=== PATIENT | female | born 1995 | race Caucasian/White ===

== ENCOUNTER → 2017-10-05 | Outpatient (REF) | payer OTHER ==
[2017-10-06 01:54] LABS: CHLAMYDIA DNA AMPLIFICATION NEGATIVE (NEGATIVE); GC DNA AMPLIFICATION NEGATIVE (NEGATIVE)
== END ==
LOC: M LAB REF 17:36
DX: Z01.419 Encounter for gynecological examination (general) (routine) without abnormal findings (principal)

== ENCOUNTER → 2017-10-22 | Outpatient (REF) | payer OTHER | LOC: M LAB REF 19:55 | DX: D48.5 Neoplasm of uncertain behavior of skin (principal) ==

== ENCOUNTER → 2018-07-14 | Outpatient (REF) | payer OTHER | LOC: M LAB REF 16:56 | DX: J02.9 Acute pharyngitis, unspecified (principal) ==

== ENCOUNTER → 2018-07-14 | Outpatient (CLI) | payer OTHER | LOC: M SMT 15:07 | DX: J22 Unspecified acute lower respiratory infection (principal) | CPT/HCPCS: 87070 ==

== ENCOUNTER → 2018-09-22 | Outpatient (CLI) | payer OTHER ==
[2018-09-22 17:51] LABS: BASO % 0.2 % (0.0-1.0); EOS # 0.1 10^3/uL (0.0-0.50); EOS % 1.1 % (0.0-3.0); HEMATOCRIT 41.4 % (36.0-47.0); HEMOGLOBIN 13.9 g/dl (12.0-15.5); LYMPH # 1.8 10^3/uL (1.5-6.5); LYMPH % 21.7 % (24.0-44.0); MEAN CORPUSCULAR HEMOGLOBIN 29.6 pg (27.0-33.0); MEAN CORPUSCULAR HGB CONC 33.6 g/dl (32.0-36.5); MEAN CORPUSCULAR VOLUME 88.3 fl (80.0-96.0); MONO # 0.5 10^3/uL (0.0-0.8); MONO % 6.4 % (0.0-5.0); NEUTROPHILS # 5.8 10^3/uL (1.8-7.7); NEUTROPHILS % 70.2 % (36.0-66.0); PLATELET COUNT, AUTOMATED 307 10^3/uL (150-450); RED BLOOD COUNT 4.69 10^6/uL (4.00-5.40); WHITE BLOOD COUNT 8.2 10^3/uL (4.0-10.0)
[2018-09-22 18:56] LABS: CHLAMYDIA DNA AMPLIFICATION NEGATIVE (NEGATIVE); GC DNA AMPLIFICATION NEGATIVE (NEGATIVE)
[2018-09-23 11:12] LABS: HEPATITIS C VIRUS ABY INDEX 0.1 INDEX (<0.8); HIV 1&2 SCREEN CENTAUR NEGATIVE (NEGATIVE); RUBELLA IgG QUALITATIVE EQUIVOCAL (IMMUNE)
== END ==
LOC: M SMT 11:48
PROVIDERS: ATTEND Obstetrics & Gynecology
DX: Z34.00 Encounter for supervision of normal first pregnancy, unspecified trimester (principal); Z3A.08 8 weeks gestation of pregnancy

== ENCOUNTER → 2018-11-30 | Outpatient (CLI) | payer OTHER ==
--- NOTE | 2018-12-01 02:59 | REP ---
Clinical: Anatomical evaluation. Comparison: None . Findings: Examination demonstrates a single live intrauterine in breech presentation. motion is identified by technologist. Placenta is noted anterior and grade grade 1 without evidence for placenta previa or abruption. Amniotic fluid volume is normal. Cervix measures 2.7 cm in length and appears closed. No evidence for nuchal cord. Gestational age by LMP 18 weeks 3 days with GAGE 04/30/2019 . Gestational age by current measurements 04-wiem-0-day with GAGE AC 04/27/2019 . FHR equals 147 beats per minute. BPD 4.3 cm 19 weeks 0 days HC 16.3 cm 19 weeks 0 day AC 14.2 cm 19 weeks 4 days FL 2.7 cm 18 weeks 2 day HL 2.7 cm 18 weeks 4 day HC/AC ratio 1.15 Estimated weight 266 grams ( 68th percentile). Anatomical assessment demonstrates normal structures including cranium, choroid plexus, cavum, cerebellum/posterior fossa, facial features, lungs, four-chamber heart/ventricular outflow tracts, diaphragm, stomach, cord insertion/three-vessel cord, kidneys/bladder, and extremities. Impression: 1. Single live intrauterine in breech presentation demonstrating appropriate interval growth. 2. Limited evaluation of the spine. Remainder of the anatomical assessment is complete and normal. Electronically Signed by Lopez Askew MD 12/01/2018 02:51 A
== END ==
LOC: M RAD 17:18
PROVIDERS: ATTEND Advanced Practice Midwife
DX: O32.1XX0 Maternal care for breech presentation, not applicable or unspecified (principal); Z36.89 Encounter for other specified antenatal screening; Z3A.18 18 weeks gestation of pregnancy

== ENCOUNTER → 2018-12-22 | Outpatient (CLI) | payer OTHER ==
--- NOTE | 2018-12-22 15:07 | REP ---
OBSTETRIC SONOGRAPHY: HISTORY: Supervision of followup anatomy. FINDINGS: Scanning through the gravid uterus demonstrates a viable single intrauterine gestation in a cephalic lie. motion is observed and heart rate is recorder 144 beats per minute. An anterior grade 1 placenta is seen without evidence of previa. Amniotic fluid is subjectively normal. Closed cervical length is measured at 3.6 cm viewed transabdominally. There has been appropriate interval growth. No anomaly is seen. The following anatomic structures are identified today and felt to be sonographically unremarkable: cranium, choroid plexus, cavum, cerebellum posterior fossa, face and profile, lungs, four-chamber heart with left and right ventricular outflow tract views, diaphragm, left-sided stomach, abdominal wall cord insertion, three-vessel umbilical cord, kidneys and bladder, spine, upper and lower extremities. Biometry Chart: BPD 5.4 cm = 22 weeks 2 days HC 19.3 cm = 21 weeks 4 days AC 16.4 cm = 21 weeks 3 days FL 3.9 cm = 22 weeks 2 days HL 3.5 cm = 22 weeks 0 days CD 2.3 cm = 21 weeks 2 days HC/AC ratio normal 1.18 Cephalic index normal 0.78. Estimated weight 454 grams, 1 pound 0 ounces, 55th percentile for 21 weeks 4 days. IMPRESSION: Viable single intrauterine gestation at 21 weeks 5 days by today's composite sonographic criteria. Expected gestational age estimate based on prior sonography is 21 weeks 4 days. GAGE by prior sonography April 30, 2019. anatomic survey is felt to be complete. Electronically Signed by Gurdeep Rivas MD 12/22/2018 03:28 P
== END ==
LOC: M SMT 08:30
PROVIDERS: ATTEND Obstetrics & Gynecology
DX: Z34.82 Encounter for supervision of other normal pregnancy, second trimester (principal); Z3A.21 21 weeks gestation of pregnancy

== ENCOUNTER → 2019-01-25 | Outpatient (CLI) | payer OTHER ==
[2019-01-25 14:01] LABS: HEMATOCRIT 33.9 % (36.0-47.0); HEMOGLOBIN 11.3 g/dl (12.0-15.5); MEAN CORPUSCULAR HEMOGLOBIN 30.3 pg (27.0-33.0); MEAN CORPUSCULAR HGB CONC 33.3 g/dl (32.0-36.5); MEAN CORPUSCULAR VOLUME 90.9 fl (80.0-96.0); PLATELET COUNT, AUTOMATED 222 10^3/uL (150-450); RED BLOOD COUNT 3.73 10^6/uL (4.00-5.40); WHITE BLOOD COUNT 8.1 10^3/uL (4.0-10.0)
== END ==
LOC: M SMT 09:09
PROVIDERS: ATTEND Obstetrics & Gynecology
DX: Z34.02 Encounter for supervision of normal first pregnancy, second trimester (principal); Z3A.00 Weeks of gestation of pregnancy not specified

== ENCOUNTER → 2019-04-04 | Outpatient (REF) | payer OTHER | LOC: M LAB REF 13:06 | PROVIDERS: ATTEND Specialist | DX: Z34.03 Encounter for supervision of normal first pregnancy, third trimester (principal) ==

== ENCOUNTER → 2019-04-25 | Outpatient (CLI) | payer OTHER ==
[~2019-04-25] MED LIST: PRENTAB9 PO; RANI1TAB38 PO
[2019-04-25 17:09] LABS: HEMATOCRIT 36.2 % (36.0-47.0); HEMOGLOBIN 12.2 g/dl (12.0-15.5); MEAN CORPUSCULAR HEMOGLOBIN 29.8 pg (27.0-33.0); MEAN CORPUSCULAR HGB CONC 33.7 g/dl (32.0-36.5); MEAN CORPUSCULAR VOLUME 88.3 fl (80.0-96.0); PLATELET COUNT, AUTOMATED 223 10^3/uL (150-450); WHITE BLOOD COUNT 10.1 10^3/uL (4.0-10.0)
[2019-04-25 17:30] LABS: CREATININE,RANDOM URINE 39.9 MG/DL; TOTAL PROTEIN,RANDOM URINE 18.9 MG/DL (0.0-12.0)
[2019-04-25 17:31] LABS: ALT/SGPT 15 U/L (12-78); BILIRUBIN,TOTAL 0.3 MG/DL (0.2-1.0); CREATININE FOR GFR 0.65 MG/DL (0.55-1.30); GLOMERULAR FILTRATION RATE > 60.0 (>60); LDH LACTATE DEHYDROGENASE 135 U/L (84-246); URIC ACID 3.3 MG/DL (2.6-6.0)
== END ==
LOC: M LAB 16:36
PROVIDERS: ATTEND Advanced Practice Midwife
DX: O16.3 Unspecified maternal hypertension, third trimester (principal)

== ENCOUNTER 2019-04-26 11:35 | Inpatient (IN) | payer OTHER ==
[~2019-04-26] VITALS: Ht 160 cm; Wt 81.1 kg
[2019-04-26] MEDS ORDERED: RANI1TAB38 PO (11:59)
[2019-04-26] MEDS ORDERED: PRENTAB9 PO (11:59)
[2019-04-26 12:10] VITALS: BP 139/89
[2019-04-26 12:52] LABS: HEMATOCRIT 35.6 % (36.0-47.0); HEMOGLOBIN 12.2 g/dl (12.0-15.5); MEAN CORPUSCULAR HEMOGLOBIN 30.6 pg (27.0-33.0); MEAN CORPUSCULAR HGB CONC 34.3 g/dl (32.0-36.5); MEAN CORPUSCULAR VOLUME 89.2 fl (80.0-96.0); PLATELET COUNT, AUTOMATED 205 10^3/uL (150-450); RED BLOOD COUNT 3.99 10^6/uL (4.00-5.40); WHITE BLOOD COUNT 10.7 10^3/uL (4.0-10.0)
[2019-04-26 13:00] VITALS: BP 120/67
[2019-04-26] MEDS ORDERED: miSOPROStol 50 MCG 1/2 TAB (S0191) PO ONE (13:00)
[2019-04-26] MEDS ORDERED: SLF 3 ML SYR IV PRN (13:30)
--- NOTE | 2019-04-26 13:38 | HPE ---
DATE OF ADMISSION: 04/26/2019 Chiquita is a 23-year-old, 1, para 0 at 39 and 3/7 weeks with an estimated date of confinement (EDC) of 04/30/2019 based on last menstrual period and confirmed by first trimester ultrasound. She presents to labor and delivery today following followup appointment with elevated blood pressure in the office yesterday. Blood pressure today was again found to be elevated. She does deny visual disturbances, headaches, epigastric pain and right upper quadrant discomfort. She denies regular painful contractions, vaginal bleeding and leakage of fluid. The fetus has been active. care was initiated at [facility] in the first trimester. course complicated by Rubella equivocal with a plan to immunize patient and today's diagnosis of preeclampsia. OBSTETRIC HISTORY: Primigravida. OBSTETRIC LABORATORIES: O positive, antibody screen negative, Rubella equivocal, VDRL nonreactive, urine culture with no growth, hepatitis B surface antigen negative, HIV negative, hepatitis C antibody nonreactive, Gonorrhea and chlamydia negative. She did decline genetic serum screening laboratories. Gestational diabetic screening normal at 92. Group B streptococcus (GBS) is negative. Preeclamptic profile from 04/25/2019: CBC with hemoglobin of 12.2, hematocrit 36.2, platelets 223, creatinine 0.65, uric acid 3.3, AST 12, ALT 5, LDH 135. Spot urine for protein was 0.247. PAST MEDICAL HISTORY: 1. Childhood varicella. SURGERIES: 1. [place] tooth extraction. FAMILY HISTORY: Hypertension, liver disease. SOCIAL HISTORY: The patient is . Her is at bedside and supportive. She is a nonsmoker. She denies alcohol and drug use. No history of any sexually transmitted infections. She denies a history of abuse -- physical, sexual and emotional. ALLERGIES: KEFLEX. CURRENT MEDICATIONS: - Zantac 150 mg twice a day - Zofran 4 mg as needed - vitamin OBJECTIVE: Temperature 98.4, pulse 88, respirations 18, blood pressure 139/89. heart rate upon arrival 140 with moderate variability, positive accelerations, no decelerations, contractions about every 7 minutes and mild. Abdomen: Gravid, cephalic presentation, estimated weight 7.5 pounds. Sterile vaginal examination: 2 cm dilated, 50% effaced, -2 station, very posterior, soft and no show with the examination. ASSESSMENT: 1. Intrauterine at 39 and 3/7 weeks. heart rate category 1. 2. Preeclampsia. PLAN: Admit patient to labor and delivery for induction of labor. Routine labs. Out of bed as desired. Regular diet at this time. We will start misoprostol 50 mcg by mouth times one dose for cervical ripening. I did review the risks, benefits and alternatives with the patient. Her and her 's questions have been answered. She has been verbally consented for emergency surgery and blood products if necessary. I do anticipate cervical ripening.
[2019-04-26 13:55] VITALS: BP 128/73
[2019-04-26 14:01] VITALS: BP 120/69
[2019-04-26] MEDS ORDERED: miSOPROStol 50 MCG 1/2 TAB (S0191) PV ONE (17:00)
[2019-04-26] MEDS: SLF 3 ML SYR IV SCH ×2 (17:19→22:00)
[2019-04-26 18:22] VITALS: BP 137/80
[2019-04-26] MEDS ORDERED: OXYTOCIN DRIP 30 UNITS in APPROPRIATE DILUENT 1 EA IV SCH (19:30)
[2019-04-26] MEDS ORDERED: OXYTOCIN 30 UNITS IN 0.9% NaCl 500ML IV BAG (J2590) As Ordered ONE (22:06)
[2019-04-26] MEDS ORDERED: CALCIUM CARBONATE 500 MG CHEW U/D As Ordered ONE (23:32)
[2019-04-27] VITALS (89 sets, daily range): BP systolic 94–175; BP diastolic 53–92
[2019-04-27] MEDS ORDERED: FENTANYL 2MCG/ML ROPIVACAINE 0.2% IN 0.9% NACL 100ML IVBAG As Ordered ONE (00:13)
[2019-04-27 00:39] LABS: HEMATOCRIT 36.1 % (36.0-47.0); HEMOGLOBIN 12.5 g/dl (12.0-15.5); MEAN CORPUSCULAR HEMOGLOBIN 30.7 pg (27.0-33.0); MEAN CORPUSCULAR HGB CONC 34.6 g/dl (32.0-36.5); MEAN CORPUSCULAR VOLUME 88.7 fl (80.0-96.0); PLATELET COUNT, AUTOMATED 224 10^3/uL (150-450); RED BLOOD COUNT 4.07 10^6/uL (4.00-5.40); WHITE BLOOD COUNT 13.1 10^3/uL (4.0-10.0)
[2019-04-27] MEDS: LR 1,000 ML IV SCH ×2 (01:29→10:49)
[2019-04-27] MEDS ORDERED: EPIDURAL COMMENT XX SCH (02:00)
[2019-04-27] MEDS ORDERED: REFRIGERATOR IV KEYS XX PRN (02:00)
[2019-04-27] MEDS ORDERED: diphenhydrAMINE INJ 50MG/ML VIAL (J1200) IV PRN (02:00)
[2019-04-27] MEDS ORDERED: NALOXONE INJ 0.4 MG/1 ML VIAL (J2310) IV PRN (02:00)
[2019-04-27] MEDS ORDERED: EPIDURAL/PCA KEYS XX PRN (02:00)
[2019-04-27] MEDS ORDERED: ePHEDrine SULFATE 25 MG/5 ML(5MG/ML) SYRINGE IV PRN (02:00)
[2019-04-27] MEDS: SLF 3 ML SYR IV SCH ×2 (06:00→13:06)
[2019-04-27] MEDS: FENTANYL/ROPIVACAINE/NACL BAG 100 ML EPIDURAL SCH ×2 (07:00→08:45)
[2019-04-27] MEDS: ONDANSETRON 4MG/2ML VIAL (J2405) IV PRN ×2 (08:42→18:12)
[2019-04-27] MEDS ORDERED: OXYTOCIN DRIP 30 UNITS in APPROPRIATE DILUENT 1 EA IV SCH (16:49)
[2019-04-27] MEDS ORDERED: DOCUSATE SODIUM 100 MG CAP PO PRN (17:00)
[2019-04-27] MEDS ORDERED: DIBUCAINE 1% OINTMENT 30GM TOP PRN (17:00)
[2019-04-27] MEDS ORDERED: ACETAMINOPHEN 500 MG TAB PO PRN (17:00)
[2019-04-27] MEDS ORDERED: IBUPROFEN 600 MG TAB PO PRN (17:00)
[2019-04-27] MEDS ORDERED: ACETAMINOPHEN TAB 650MG DOSE (2X325MG) PO PRN (17:00)
[2019-04-27] MEDS ORDERED: RHOGAM 300 MCG (1500 IU) INJ (J2790) IM SCH (17:00)
[2019-04-27] MEDS ORDERED: MEASLES,MUMPS,RUBELLA VACCINE INJ (MMR-II) (90707) SC SCH (17:00)
--- NOTE | 2019-04-27 17:29 | DN ---
DATE OF DELIVERY: 04/27/2019 Chiquita is a 23-year-old 1, para 1-0-0-1 now who was admitted to labor and delivery for induction of labor due to preeclampsia. Misoprostol and IV Pitocin was used and a labor did ensue. She utilized an epidural for her labor coping. She had assisted rupture of membranes for a light meconium-stained fluid at 1352. She reached full dilation at 1352. She pushed to a normal spontaneous vaginal delivery of a live female infant in occiput anterior (OA) position with restitution to left occiput transverse (LOT) position at 1551. There was no nuchal cord. The shoulders delivered with gentle downward traction and the corpus immediately followed. [place] female's mouth and nares were bulb suctioned. She was placed on the maternal abdomen with spontaneous cry. The cord was clamped times two once pulsations ceased and cut by the father of baby under my direction. There was a spontaneous expulsion of an intact placenta with three-vessel cord by Calvin mechanism at 1601. Uterine hemostasis was achieved with IV Pitocin rapid infusion and uterine fundal massage. Estimated blood loss 350 mL. Perineum and vagina inspected and noted to have bilateral sulcus lacerations as well as a second-degree midline laceration. Lacerations were repaired with #3-0 Rapide in the usual fashion. [place] female weighed 8 pounds 4 ounces or 3730 grams, nine and nine. Mom is going to breastfeed her daughter and the family have named Jolene Heck. At the close of delivery lap counts, needle counts, and instrument counts were correct and verified.
[2019-04-27] MEDS: IBUPROFEN 800 MG TAB PO PRN (18:17)
[2019-04-28] MEDS: IBUPROFEN 800 MG TAB PO PRN ×3 (03:44→20:01)
[2019-04-28 06:15] VITALS: BP 115/66
[2019-04-28] MEDS ORDERED: PILL CUTTER 1 EACH XX PRN (07:15)
[2019-04-28] MEDS: FAMOTIDINE 20 MG TAB PO SCH ×2 (09:09→21:13)
[2019-04-28] MEDS: PRENATAL VITAMINS CHEWABLE TABLET PO SCH (09:09)
[2019-04-28 17:51] VITALS: BP 110/67
[2019-04-29 06:17] VITALS: BP 113/66
[2019-04-29] MEDS: FAMOTIDINE 20 MG TAB PO SCH (08:18)
[2019-04-29] MEDS: PRENATAL VITAMINS CHEWABLE TABLET PO SCH (08:18)
[2019-04-29] MEDS: IBUPROFEN 800 MG TAB PO PRN (08:29)
== END 2019-04-29 15:15 | disposition home or self-care (01) | DRG 807 ==
LOC: M LDI 11:35 → M OBS 04-27 18:32
PROVIDERS: ADMIT Advanced Practice Midwife; ATTEND Advanced Practice Midwife
PROC: 3E0P7GC Introduction of Other Therapeutic Substance into Female Reproductive, Via Natural or Artificial Opening (ICD-10-PCS; 2019-04-26)
PROC: 10E0XZZ Delivery of Products of Conception, External Approach (ICD-10-PCS; principal; 2019-04-27)
PROC: 0KQM0ZZ Repair Perineum Muscle, Open Approach (ICD-10-PCS; 2019-04-27)
DX: O14.94 Unspecified pre-eclampsia, complicating childbirth (principal); Z37.0 Single live birth; Z3A.39 39 weeks gestation of pregnancy; O70.1 Second degree perineal laceration during delivery

== ENCOUNTER → 2020-03-14 | Outpatient (REF) | payer OTHER | LOC: M SFHCWAGY 11:22 | PROVIDERS: ATTEND Advanced Practice Midwife | DX: Z12.4 Encounter for screening for malignant neoplasm of cervix (principal) ==